=== PATIENT | male | born 1985 | race Hispanic/Latino ===

== ENCOUNTER 2018-11-19 06:15 | Observation (INO) | payer OTHER, SELFPAY ==
[2018-11-16 11:45] VITALS: BP 125/77
--- NOTE | 2018-11-16 11:46 | NUR ---
LABS LAB RESULTS FROM OFFICE BROUGHT BY PT, NO RESULTS FOR VITAMIN K WAS FOUND. CALLED DR. SALAZAR'S OFFICE FOR CLARIFICATION, SPOKE TO PETER, DR. SALAZAR'S NURSE. PER PETER, IF VIT K RESULTS NOT FOUND, DISREGARD VIT K ORDER, NO NEED TO DRAW PATIENT.
[~2018-11-19] VITALS: Ht 176.5 cm; Wt 142.5 kg
[2018-11-19] VITALS (29 sets, daily range): BP systolic 120–149; BP diastolic 62–93
[~2018-11-19 06:15] MED LIST: CHOL20004 PO; FLUT9.9S NS; HEPARIN SODIUM 5000UNIT/ML 1ML VIAL SQ SCH; LEVO5TAB13 PO; LOSA25TA41 PO; OMEP10CA41 PO; SERT50TA12 PO; TEST200V21 IM
[2018-11-19] MEDS ORDERED: LACTATED RINGERS 1000ML 1,000 ML IV ONE ×2 (06:34→23:19)
[2018-11-19] MEDS: CEFOXITIN SODIUM 2 GM VIAL IVP SCH ×2 (07:00→08:02)
[2018-11-19] MEDS: CYANOCOBALAMIN (VITAMIN B-12) 1000 MCG/ML 1ML VIAL IM SCH (07:12)
[2018-11-19] MEDS ORDERED: MEPERIDINE-PF 50 MG/ML SYG ONE (07:12)
[2018-11-19] MEDS ORDERED: LIDOCAINE PF 2% 5ML ABBOJECT ONE (07:15)
[2018-11-19] MEDS ORDERED: ROCURONIUM 10MG/1ML SYR 10 MG/ML ML ONE ×2 (07:15→08:47)
[2018-11-19] MEDS ORDERED: SUCCINYLCHOLINE 200MG/10ML SYR ONE (07:15)
[2018-11-19] MEDS ORDERED: PROPOFOL 10 MG/ML 20ML VIAL IV ONE (07:15)
[2018-11-19] MEDS ORDERED: FENTANYL CITRATE PF 50 MCG/1 ML 5ML AMP IV ONE (07:16)
[2018-11-19] MEDS ORDERED: LIDOCAINE HCL-MPF 0.5% 50ML VIAL IJ ONE (07:22)
[2018-11-19] MEDS ORDERED: GENTAMICIN SULFATE 80 MG/2 ML VIAL ONE (07:22)
[2018-11-19] MEDS ORDERED: CLINDAMYCIN PHOSPHATE 150 MG/ML 6ML VIAL ONE (07:23)
[2018-11-19] MEDS ORDERED: BUPIVACAINE/EPI/PF 0.5% 30ML VIAL IJ ONE ×2 (07:25→08:20)
[2018-11-19] MEDS ORDERED: METHYLENE BLUE 10 MG/ML AMP ONE (07:25)
[2018-11-19] MEDS ORDERED: GLYCOPYRROLATE 1 MG/5 ML SYRINGE ONE (09:17)
[2018-11-19] MEDS ORDERED: KETOROLAC TROMETHAMINE 30MG/ML ONE (09:17)
[2018-11-19] MEDS ORDERED: NEOSTIGMINE 5MG/5ML SYR IV ONE (09:17)
[2018-11-19] MEDS ORDERED: ONDANSETRON HCL 4 MG/2 ML VIAL ONE ×2 (09:20→10:10)
[2018-11-19] MEDS ORDERED: MEPERIDINE-PF 25 MG/ML SYG ONE ×2 (10:10→11:20)
[2018-11-19] MEDS ORDERED: METOCLOPRAMIDE 10 MG/2 ML VIAL ONE (10:17)
[2018-11-19] MEDS ORDERED: HYDROMORPHONE PCA 10 MG/50 ML 50 ML IV PRN (13:00)
[2018-11-19] MEDS ORDERED: ONDANSETRON HCL 4 MG/2 ML 8 MG in SODIUM CHLORIDE 0.9% 50 ML IVP PRN (13:00)
--- NOTE | 2018-11-19 17:00 | NUR ---
DR. MARTIN LUNA AWARE OF PT'S THOMAS BLOOD EMESIS, FRESH LOOKING BLOOD NO CLOTS NOTED PT'S VITAL SIGNS READ TO STATED TO CHECK h&H AT 1800 TODAY AND TOMORROW AM. CARAFATE SLURY 1 GRAM Q4 HRS AND ICE CHIPS PT DENIES SOB OR CHEST PAIN WILL CONTINUE TO MONITOR CHARGE NURSE SHARON MELGAR
[2018-11-19] MEDS: SUCRALFATE 1 GM/10 ML PO SCH ×3 (17:35→21:35)
[2018-11-19] MEDS ORDERED: ONDANSETRON HCL 4 MG/2 ML VIAL IVP PRN (18:00)
[2018-11-19 18:34] LABS: HEMATOCRIT 45.2 % (42-54)
[2018-11-19] MEDS: HEPARIN SODIUM 5000UNIT/ML 1ML VIAL SQ SCH (19:53)
[2018-11-20] MEDS: SUCRALFATE 1 GM/10 ML PO SCH ×6 (03:11→22:33)
[2018-11-20] MEDS: CYANOCOBALAMIN (VITAMIN B-12) 1000 MCG/ML 1ML VIAL IM SCH ×2 (03:12→20:53)
[2018-11-20 04:05] VITALS: BP 146/86
[2018-11-20 04:34] LABS: HEMATOCRIT 44.3 % (42-54)
[2018-11-20 08:20] VITALS: BP 128/81
[2018-11-20] MEDS: HEPARIN SODIUM 5000UNIT/ML 1ML VIAL SQ SCH ×2 (09:56→22:36)
[2018-11-20 11:49] VITALS: BP 123/71
--- NOTE | 2018-11-20 14:01 | NUR ---
DCP CM met with pt discussed dc plans. Pt is independent, lives at home with partner Ralf Hicks. Denies any equipments/services. Pt feels safe to go back home, still works and drives, partner able to assist with transportation and needs as necessary. DC plan to home once stable. CM to cont to follow up. Addendum: 11/20/18 at 1403 by WALI HOLDEN LVN CM Amended: Links added.
[2018-11-20 16:23] VITALS: BP 125/71
--- NOTE | 2018-11-20 20:10 | NUR ---
NOTE PATIENT REPORTS FEELING UNCOMFORTABLE. PAIN LEVEL 8-9. HAS CALF SKINNER AND USES IT NEEDED. HAS BEEN WALKING FREQUENTLY BUT NOT SUCCESSFUL IN BEING ABLE TO PASS GAS. STATES HE DOES NOT FEEL COMFORTABLE GOING HOME YET DUE TO THE ABOVE MENTIONED.
[2018-11-20 20:15] VITALS: BP 125/66
[2018-11-20 23:35] VITALS: BP 122/75
[2018-11-21] MEDS: SUCRALFATE 1 GM/10 ML PO SCH ×3 (02:36→10:20)
[2018-11-21 04:00] VITALS: BP 123/67
--- NOTE | 2018-11-21 06:40 | NUR ---
NOTE PATIENT REPORTS FEELING BETTER THIS MORNING. PAIN LEVEL 4-5. SAYS HE WAS FINALLY ABLE TO PASS GAS. ALSO STATES HE DOES FEEL COMFORTABLE GOING HOME TODAY.
[2018-11-21 08:04] VITALS: BP 121/67
[2018-11-21] MEDS: HEPARIN SODIUM 5000UNIT/ML 1ML VIAL SQ SCH (09:00)
--- NOTE | 2018-11-21 09:30 | NUR ---
DR. Zandra SALAZAR CALLED MD TO UPDATE ON PATIENT STATUS. PATIENT REPORTS ABDOMINAL PAIN 12/02 AND REPORTS PASSING GAS 2 TIMES THIS MORNING. NORMOACTIVE BOWEL SOUNDS IN ALL 4 QUADRANTS. PATIENT REPORTS FEELING BETTER TODAY. DR. Zandra SALAZAR ORDERED TO PROCEED WITH DISCHARGE TODAY. F/U APPT WITH DR. Zandra SALAZAR IN 2 WEEKS Addendum: 11/21/18 at 1210 by ANNALISA BARBOZA RN RN DR. Zandra SALAZAR ALSO TOLD ME IN THIS PHONECALL THAT HE THOUGHT PATIENT WAS DISCHARGED HOME YESTERDAY. 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
[2018-11-21 11:24] VITALS: BP 115/65
== END 2018-11-21 12:45 | disposition home or self-care (01) ==
LOC: DAH 06:15 → 4BH 06:16 → PREINTOOBSV 10:14 → EDSTATUS 10:30
PROVIDERS: ADMIT Surgery; ATTEND Surgery
DX: E66.01 Morbid (severe) obesity due to excess calories (principal); E78.5 Hyperlipidemia, unspecified; I10 Essential (primary) hypertension; Z87.891 Personal history of nicotine dependence; Z68.42 Body mass index [BMI] 45.0-49.9, adult
CPT/HCPCS: 36415 ×3; 43775; 85014 ×2; 85018 ×2; 86850 ×2; 86900 ×2; 86901 ×2; 86922; 88307; 96372 ×2; 96374; A4218; A4450; A4510; A4600; A4606; A4649 ×7; A4930; G0378 ×54; J0330; J0694; J1170; J1580; J1644 ×4; J1885; J2001; J2175 ×3; J2405 ×3; J2704; J2710; J2765; J3010; J3420 ×3; J3490 ×3; J7030; J7120 ×3; Q9968; 96375

== ENCOUNTER 2018-12-15 23:45 | Inpatient (IN) | payer OTHER ==
[~2018-12-15] VITALS: Ht 175.3 cm; Wt 124.7 kg
[~2018-12-15 23:45] MED LIST changes: +AMOX200S10 PO; -HEPARIN SODIUM 5000UNIT/ML 1ML VIAL SQ SCH
[2018-12-16 01:01] LABS: CARBON DIOXIDE 25 mmol/L (21-32); CHLORIDE 100 mmol/L (101-111); CREATININE 0.9 mg/dL (0.5-1.5); GLOMERULAR FILTR. RATE CALC 103 mL/min (>60); GLUCOSE,RANDOM 93 mg/dL (70-105); POTASSIUM 3.8 mmol/L (3.5-5.1); SODIUM SERUM 138 mmol/L (136-145); UREA NITROGEN, BLOOD 7 mg/dL (7-18)
[2018-12-16 01:14] LABS: ALANINE AMINOTRANSFERASE 32 U/L (12-78); ALBUMIN 3.5 g/dL (3.5-5.0); ASPARTATE AMINOTRANSFERASE 23 U/L (10-37); CREATINE KINASE, TOTAL 56 U/L (21-232); MYOGLOBIN 22 ng/mL (10-92); TOTAL PROTEIN, SERUM 7.1 g/dL (6.0-8.3); TROPONIN I < 0.04 ng/mL (0.00-0.06)
[2018-12-16] MEDS ORDERED: IOHEXOL-350 75 ML VIAL IV ONE ×2 (01:31→04:45)
[2018-12-16 02:06] LABS: BASOPHILS % (AUTO) 0.8 % (0.0-5.0); EOSINOPHILS % (AUTO) 0.7 % (0.0-8.0); LYMPHOCYTES % (AUTO) 19.5 % (21.0-51.0); MEAN CORPUSCULAR HEMOGLOBIN 28.2 pg (27.0-33.0); MEAN CORPUSCULAR HGB CONC 32.6 g/dL (32.0-36.0); MEAN CORPUSCULAR VOLUME 86.4 fL (79-99); MONOCYTES % (AUTO) 7.5 % (3.0-13.0); NEUTROPHILS % (AUTO) 71.5 % (40.0-77.0); NUCLEATED RED BLOOD CELLS 0.1 % (0.0-0.19); PLATELET COUNT (AUTO) 364 K/uL (130-400); RED BLOOD CELL COUNT(AUTO) 4.51 MIL/uL (4.50-6.20); RED CELL DISTRIBUTION WIDTH 15.9 % (11.0-15.5); WHITE BLOOD COUNT (AUTO) 15.2 K/uL (4.8-10.8)
[2018-12-16 02:17] LABS: INR 1.21 (0.85-1.15); PARTIAL THROMBOPLASTIN TIME 34.3 SEC (26.3-35.5); PROTHROMBIN TIME 12.7 SEC (9.6-11.6)
[2018-12-16 02:30] LABS: APPEARANCE,URINE Clear (CLEAR); BILIRUBIN,URINE Negative (NEGATIVE); COLOR,URINE Yellow (YELLOW); GLUCOSE, URINE (UA) Negative (NEGATIVE); KETONES,URINE >=160 mg/dL (NEGATIVE); LEUKOCYTE ESTERASE ,URINE Negative (NEGATIVE); NITRATE,URINE Negative (NEGATIVE); OCCULT BLOOD,URINE Negative (NEGATIVE); PROTEIN,URINE Negative (NEGATIVE)
[2018-12-16 02:42] LABS: RBC,URINE None Seen /HPF (0-1); WBC,URINE 0-1 /HPF (0-1)
[2018-12-16 02:43] LABS: BACTERIA,URINE Rare /HPF (None Seen); SQUAMOUS EPITHELIAL CELL,UR 0-2 /HPF (0-2)
[2018-12-16] MEDS ORDERED: DIATR MEGLU/DIATRIZOATE SODIUM 30 ML BOTTLE ONE (02:48)
[2018-12-16] MEDS: SODIUM CHLORIDE 0.9% 1000ML 1,000 ML IV SCH ×2 (06:09→16:09)
[2018-12-16] MEDS ORDERED: ACETAMINOPHEN 325 MG TAB PO PRN (06:15)
[2018-12-16] MEDS ORDERED: ZOSYN 3.375GM+NS 50ML 50 ML IV ONE ×2 (07:02→17:07)
[2018-12-16] MEDS: PANTOPRAZOLE SODIUM 40 MG TABLET.DR PO SCH (09:00)
[2018-12-16] MEDS: ENOXAPARIN SODIUM 40 MG/0.4 ML SYRINGE SQ SCH (09:00)
[2018-12-16] MEDS ORDERED: SODIUM CHLORIDE 0.9% 1000ML 1,000 ML IV ONE (10:58)
[2018-12-16] MEDS ORDERED: ENOXAPARIN SODIUM 40 MG/0.4 ML SYRINGE SQ ONE (10:58)
[2018-12-16] MEDS: ZOSYN 3.375GM+NS 50ML 50 ML IV SCH ×2 (13:00→21:00)
[2018-12-17] MEDS ORDERED: ZOSYN 3.375GM+NS 50ML 50 ML IV ONE (01:31)
[2018-12-17] MEDS ORDERED: MORPHINE SULFATE 2 MG/ML 1ML SYG ONE ×2 (01:32→06:28)
[2018-12-17] MEDS: SODIUM CHLORIDE 0.9% 1000ML 1,000 ML IV SCH ×3 (02:09→20:35)
[2018-12-17] MEDS: ZOSYN 3.375GM+NS 50ML 50 ML IV SCH ×3 (05:00→20:34)
[2018-12-17 07:25] VITALS: BP 146/72
[2018-12-17] MEDS: PANTOPRAZOLE SODIUM 40 MG TABLET.DR PO SCH (09:00)
[2018-12-17] MEDS: ENOXAPARIN SODIUM 40 MG/0.4 ML SYRINGE SQ SCH (09:00)
[2018-12-17 11:00] VITALS: BP 136/88
--- NOTE | 2018-12-17 13:53 | NUR ---
PROCEDURE PATIENT SCHEDULED FOR DRAINAGE CATHETER PLACEMENT OF ABDOMINAL ABSCESS FOR TODAY. DR Kip NEVILLE MADE AWARE AND REVIEWED IMAGES. UNABLE TO PERFORM PROCEDURE TODAY AND AND RESCHEDULED PROCEDURE FOR TOMORROW AT 0930. JOVANA GREEN INFORMED OR PROCEDURE OUTCOME.
[2018-12-17] MEDS: ONDANSETRON HCL 4 MG/2 ML VIAL IV PRN ×2 (14:48→23:34)
[2018-12-17] MEDS: MORPHINE SULFATE 2 MG/ML 1ML SYG IV PRN ×2 (14:48→23:35)
[2018-12-17 16:00] VITALS: BP 118/64
[2018-12-17] MEDS ORDERED: DIATR MEGLU/DIATRIZOATE SODIUM 30 ML BOTTLE ONE (16:20)
[2018-12-17] MEDS: FLUCONAZOLE 200 MG/NS 100 ML 100 ML IV SCH (17:20)
--- NOTE | 2018-12-17 17:34 | NUR ---
PT UPDATE ID consulted to see pt, order for upper GI series to rule out leakage, workup positive for leakage, pt placed NPO right now, Dr. Flores the surgeon made aware, order to consult GI international editorial producer for gastric stent placement, Dr. Spaulding consulted, pending to see pt. Nursing will continue to follow up.
[2018-12-17 20:00] VITALS: BP 125/76
--- NOTE | 2018-12-17 20:19 | NUR ---
cm note met with patient pt lives with partner, independent with ambulation and adls, no dme. works full time babysitter drives. . dc plan is back to home. states no dc needs. Addendum: 12/17/18 at 2020 by ASA ZAMBRANO CM Amended: Links added.
[2018-12-17 23:00] VITALS: BP 121/76
[2018-12-18] VITALS (10 sets, daily range): BP systolic 121–155; BP diastolic 74–89
[2018-12-18] MEDS: ZOSYN 3.375GM+NS 50ML 50 ML IV SCH ×3 (05:08→20:14)
[2018-12-18 05:58] LABS: BASOPHILS % (AUTO) 0.5 % (0.0-5.0); EOSINOPHILS % (AUTO) 2.1 % (0.0-8.0); HEMATOCRIT 38.3 % (42-54); LYMPHOCYTES % (AUTO) 10.2 % (21.0-51.0); MEAN CORPUSCULAR HEMOGLOBIN 28.3 pg (27.0-33.0); MEAN CORPUSCULAR HGB CONC 32.5 g/dL (32.0-36.0); MEAN CORPUSCULAR VOLUME 86.9 fL (79-99); MONOCYTES % (AUTO) 9.9 % (3.0-13.0); NEUTROPHILS % (AUTO) 77.3 % (40.0-77.0); PLATELET COUNT (AUTO) 307 K/uL (130-400); RED BLOOD CELL COUNT(AUTO) 4.41 MIL/uL (4.50-6.20); RED CELL DISTRIBUTION WIDTH 16.7 % (11.0-15.5); WHITE BLOOD COUNT (AUTO) 11.6 K/uL (4.8-10.8)
[2018-12-18 06:26] LABS: CREATININE 0.8 mg/dL (0.5-1.5); POTASSIUM 3.6 mmol/L (3.5-5.1)
[2018-12-18] MEDS: PANTOPRAZOLE SODIUM 40 MG TABLET.DR PO SCH (09:00)
[2018-12-18] MEDS: MORPHINE SULFATE 2 MG/ML 1ML SYG IV PRN ×2 (09:22→17:51)
[2018-12-18] MEDS: ONDANSETRON HCL 4 MG/2 ML VIAL IV PRN ×2 (09:22→17:51)
[2018-12-18] MEDS: SODIUM CHLORIDE 0.9% 1000ML 1,000 ML IV SCH ×2 (09:22→16:36)
[2018-12-18] MEDS ORDERED: MIDAZOLAM HCL 1 MG/ML 2ML VIAL ONE (10:15)
[2018-12-18] MEDS ORDERED: LIDOCAINE HCL 1% 20 ML VIAL ONE (10:15)
[2018-12-18] MEDS ORDERED: FENTANYL CITRATE PF 50 MCG/1 ML 2ML VIAL ONE (10:15)
--- NOTE | 2018-12-18 11:30 | NUR ---
CT GD DRAINAGE CATHETER PLACEMENT PROCEDURE PERFORMED BY DR Kip NEVILLE. PUNCTURE SITE LT LOWER BACK. PATIENT TOLERATED PROCEDURE WELL. 12 FR PIGTAIL CATHETER PLACED TO ABDOMINAL ABSCESS AND CONNECTED TO DRAIN BAG. CATHETER SUTURED IN PLACE AND SECURED WITH DRESSING. SPECIMEN COLLECTED AND SENT TO LAB. END OF PROCEDURE AT 1115. REPORT GIVEN TO Aubrey ANNA RN AND PATIENT TRANSPORTED TO [facility] VIA BED AT 1130 AAO X3 WITH NO C/O PAIN.
--- NOTE | 2018-12-18 12:00 | NUR ---
PER DR. KATZ, DISPOSITION IS UNDETERMINED WILL WAIT TO SEE CULTURE RESULTS, ETC BEFORE DETERMINING AFTER CARE NEED. MAY NEED SNF, AIU, OR OTHER. Addendum: 12/18/18 at 1719 by TIO DAWSON RN CM Amended: Links added.
[2018-12-18] MEDS: ENOXAPARIN SODIUM 40 MG/0.4 ML SYRINGE SQ SCH (14:00)
[2018-12-18] MEDS: FLUCONAZOLE 200 MG/NS 100 ML 100 ML IV SCH (16:36)
--- NOTE | 2018-12-18 19:23 | NUR ---
SPOKE WITH DR. DEVORAH FAIRCHILD REPORT HE ALREADY SPOKE WITH DR. MCCLELLAN REGARDING PATIENT. PT WILL STAY NPO DUE TO LEAK. DR. MCCLELLAN TO SEE PATIENT REGARDING LEAK.
[2018-12-18] MEDS ORDERED: ACETAMINOPHEN 650 MG SUPPOSITORY RC PRN (20:45)
--- NOTE | 2018-12-18 21:05 | NUR ---
SURGEON DR. FAIRCHILD IN TO SEE PATIENT. NO NEW ORDERS RECEIVED AT THIS TIME.
[2018-12-19] VITALS: BP 112/64
[2018-12-19 04:00] VITALS: BP 132/78
[2018-12-19] MEDS: SODIUM CHLORIDE 0.9% 1000ML 1,000 ML IV SCH (04:18)
[2018-12-19] MEDS: ZOSYN 3.375GM+NS 50ML 50 ML IV SCH ×3 (04:18→22:44)
[2018-12-19] MEDS: ONDANSETRON HCL 4 MG/2 ML VIAL IV PRN ×3 (04:18→18:24)
[2018-12-19] MEDS: MORPHINE SULFATE 2 MG/ML 1ML SYG IV PRN ×3 (04:19→18:23)
[2018-12-19 05:34] LABS: BASOPHILS % (AUTO) 0.5 % (0.0-5.0); EOSINOPHILS % (AUTO) 1.4 % (0.0-8.0); HEMATOCRIT 37.3 % (42-54); LYMPHOCYTES % (AUTO) 9.4 % (21.0-51.0); MEAN CORPUSCULAR HEMOGLOBIN 28.3 pg (27.0-33.0); MEAN CORPUSCULAR HGB CONC 32.8 g/dL (32.0-36.0); MEAN CORPUSCULAR VOLUME 86.2 fL (79-99); MONOCYTES % (AUTO) 10.2 % (3.0-13.0); NEUTROPHILS % (AUTO) 78.5 % (40.0-77.0); PLATELET COUNT (AUTO) 301 K/uL (130-400); RED BLOOD CELL COUNT(AUTO) 4.33 MIL/uL (4.50-6.20); RED CELL DISTRIBUTION WIDTH 16.3 % (11.0-15.5); WHITE BLOOD COUNT (AUTO) 11.2 K/uL (4.8-10.8)
[2018-12-19 05:41] LABS: CREATININE 0.8 mg/dL (0.5-1.5); POTASSIUM 3.6 mmol/L (3.5-5.1)
[2018-12-19] MEDS ORDERED: PHARMACY COMMUNICATION MISC SCH (07:45)
[2018-12-19 08:00] VITALS: BP 122/76
[2018-12-19] MEDS: PANTOPRAZOLE SODIUM 40 MG TABLET.DR PO SCH (09:00)
[2018-12-19] MEDS: ENOXAPARIN SODIUM 40 MG/0.4 ML SYRINGE SQ SCH (09:46)
[2018-12-19 12:00] VITALS: BP 122/76
--- NOTE | 2018-12-19 12:15 | NUR ---
CM PRELIIM CULTURES BACK. CASE DISCUSSED W TASNEEM, WILL START PORICESS FOR [facility]
[2018-12-19] MEDS: FLUCONAZOLE 200 MG/NS 100 ML 100 ML IV SCH (12:29)
[2018-12-19] MEDS: CLINIMIX E 4.25%-5% SOLUTION 2,000 ML IV SCH (12:30)
[2018-12-19 16:00] VITALS: BP 112/74
[2018-12-19 19:15] VITALS: BP 138/82
[2018-12-20 00:04] VITALS: BP 123/76
[2018-12-20 04:02] VITALS: BP 116/80
[2018-12-20 05:40] LABS: BASOPHILS % (AUTO) 0.7 % (0.0-5.0); EOSINOPHILS % (AUTO) 3.1 % (0.0-8.0); HEMATOCRIT 35.9 % (42-54); LYMPHOCYTES % (AUTO) 14.9 % (21.0-51.0); MEAN CORPUSCULAR HEMOGLOBIN 28.6 pg (27.0-33.0); MEAN CORPUSCULAR HGB CONC 33.3 g/dL (32.0-36.0); MEAN CORPUSCULAR VOLUME 85.9 fL (79-99); MONOCYTES % (AUTO) 10.1 % (3.0-13.0); NEUTROPHILS % (AUTO) 71.2 % (40.0-77.0); PLATELET COUNT (AUTO) 321 K/uL (130-400); RED BLOOD CELL COUNT(AUTO) 4.19 MIL/uL (4.50-6.20); RED CELL DISTRIBUTION WIDTH 16.7 % (11.0-15.5); WHITE BLOOD COUNT (AUTO) 11.9 K/uL (4.8-10.8)
[2018-12-20 05:54] LABS: CREATININE 0.7 mg/dL (0.5-1.5); POTASSIUM 3.4 mmol/L (3.5-5.1)
[2018-12-20] MEDS: ZOSYN 3.375GM+NS 50ML 50 ML IV SCH ×3 (05:59→21:00)
[2018-12-20] MEDS: PANTOPRAZOLE SODIUM 40 MG TABLET.DR PO SCH (07:57)
[2018-12-20 08:00] VITALS: BP 143/82
[2018-12-20] MEDS: ENOXAPARIN SODIUM 40 MG/0.4 ML SYRINGE SQ SCH (10:12)
[2018-12-20] MEDS: CLINIMIX E 4.25%-5% SOLUTION 2,000 ML IV SCH (10:47)
[2018-12-20 12:00] VITALS: BP 132/82
[2018-12-20] MEDS ORDERED: VANCOMYCIN PROTOCOL PER PHARMACY IV SCH (13:00)
[2018-12-20] MEDS: FLUCONAZOLE 200 MG/NS 100 ML 100 ML IV SCH (13:08)
[2018-12-20] MEDS ORDERED: VANCOMYCIN 2.5 GM in SODIUM CHLORIDE 0.9% 500ML 500 ML IV ONE (13:30)
[2018-12-20] MEDS ORDERED: COMPOUND IV REFRIGERATED 1 EACH IVSOLN MISC PRN (13:45)
[2018-12-20] MEDS: MORPHINE SULFATE 2 MG/ML 1ML SYG IV PRN ×2 (14:21→23:48)
[2018-12-20] MEDS ORDERED: LIDOCAINE HCL-MPF 1% 2ML VIAL IVP PRN ×2 (18:30)
[2018-12-20] MEDS ORDERED: POTASSIUM CHLORIDE 20MEQ/100ML 100 ML IV PRN (18:30)
[2018-12-20] MEDS ORDERED: POTASSIUM CHLORIDE 10% ELIXIR 20 MEQ/15 ML UDCUP PO PRN (18:30)
[2018-12-20 19:19] VITALS: BP 126/75
[2018-12-20] MEDS: VANCOMYCIN 1.25 GM in SODIUM CHLORIDE 0.9% 250 ML IV SCH (23:26)
[2018-12-20 23:30] VITALS: BP 118/81
[2018-12-21] VITALS (17 sets, daily range): BP systolic 108–138; BP diastolic 69–85
[2018-12-21] MEDS: POTASSIUM CHLORIDE 20MEQ/100ML 100 ML IV PRN (01:33)
[2018-12-21] MEDS: ZOSYN 3.375GM+NS 50ML 50 ML IV SCH ×3 (05:00→22:18)
[2018-12-21] MEDS: VANCOMYCIN 1.25 GM in SODIUM CHLORIDE 0.9% 250 ML IV SCH ×2 (05:00→19:13)
[2018-12-21 06:06] LABS: BASOPHILS % (AUTO) 0.8 % (0.0-5.0); EOSINOPHILS % (AUTO) 2.9 % (0.0-8.0); HEMATOCRIT 35.8 % (42-54); LYMPHOCYTES % (AUTO) 9.7 % (21.0-51.0); MEAN CORPUSCULAR HEMOGLOBIN 28.2 pg (27.0-33.0); MEAN CORPUSCULAR HGB CONC 33.1 g/dL (32.0-36.0); MEAN CORPUSCULAR VOLUME 85.1 fL (79-99); MONOCYTES % (AUTO) 9.8 % (3.0-13.0); NEUTROPHILS % (AUTO) 76.8 % (40.0-77.0); PLATELET COUNT (AUTO) 301 K/uL (130-400); RED CELL DISTRIBUTION WIDTH 16.9 % (11.0-15.5); WHITE BLOOD COUNT (AUTO) 10.2 K/uL (4.8-10.8)
[2018-12-21 06:31] LABS: CREATININE 1.1 mg/dL (0.5-1.5); POTASSIUM 3.4 mmol/L (3.5-5.1)
[2018-12-21] MEDS ORDERED: PROPOFOL 10 MG/ML 20ML VIAL IV ONE (07:03)
[2018-12-21] MEDS ORDERED: DIATR MEGLU/DIATRIZOATE SODIUM 30 ML BOTTLE ONE ×2 (07:16)
[2018-12-21] MEDS ORDERED: LIDOCAINE HCL-MPF 2% 5ML VIAL ONE (07:20)
[2018-12-21] MEDS: PANTOPRAZOLE SODIUM 40 MG TABLET.DR PO SCH (07:30)
[2018-12-21] MEDS: ENOXAPARIN SODIUM 40 MG/0.4 ML SYRINGE SQ SCH (09:15)
[2018-12-21] MEDS: FLUCONAZOLE 200 MG/NS 100 ML 100 ML IV SCH (12:27)
[2018-12-21] MEDS: ONDANSETRON HCL 4 MG/2 ML VIAL IV PRN (13:26)
[2018-12-21] MEDS: MORPHINE SULFATE 2 MG/ML 1ML SYG IV PRN (13:26)
[2018-12-21] MEDS: CLINIMIX E 4.25%-5% SOLUTION 2,000 ML IV SCH (14:53)
[2018-12-22] VITALS: BP 135/85
[2018-12-22 02:38] LABS: BASOPHILS % (AUTO) 0.8 % (0.0-5.0); EOSINOPHILS % (AUTO) 1.8 % (0.0-8.0); HEMATOCRIT 35.8 % (42-54); LYMPHOCYTES % (AUTO) 12.9 % (21.0-51.0); MEAN CORPUSCULAR HEMOGLOBIN 27.7 pg (27.0-33.0); MEAN CORPUSCULAR HGB CONC 32.5 g/dL (32.0-36.0); MEAN CORPUSCULAR VOLUME 85.1 fL (79-99); MONOCYTES % (AUTO) 11.4 % (3.0-13.0); NEUTROPHILS % (AUTO) 73.1 % (40.0-77.0); PLATELET COUNT (AUTO) 313 K/uL (130-400); RED BLOOD CELL COUNT(AUTO) 4.21 MIL/uL (4.50-6.20); RED CELL DISTRIBUTION WIDTH 16.9 % (11.0-15.5)
[2018-12-22 02:43] LABS: CREATININE 1.2 mg/dL (0.5-1.5); POTASSIUM 3.4 mmol/L (3.5-5.1)
[2018-12-22 02:45] LABS: INR 1.55 (0.85-1.15); PROTHROMBIN TIME 16.1 SEC (9.6-11.6)
[2018-12-22] MEDS ORDERED: VANCOMYCIN 1.25 GM in SODIUM CHLORIDE 0.9% 250 ML IV SCH (03:00)
[2018-12-22] MEDS: ONDANSETRON HCL 4 MG/2 ML VIAL IV PRN (03:16)
[2018-12-22 04:00] VITALS: BP 132/83
[2018-12-22] MEDS: ZOSYN 3.375GM+NS 50ML 50 ML IV SCH ×2 (05:19→21:51)
[2018-12-22] MEDS: VANCOMYCIN 1.25 GM in SODIUM CHLORIDE 0.9% 250 ML IV SCH ×3 (05:20→20:00)
[2018-12-22 07:00] VITALS: BP 126/76
[2018-12-22] MEDS: PANTOPRAZOLE SODIUM 40 MG TABLET.DR PO SCH (07:30)
[2018-12-22] MEDS: ENOXAPARIN SODIUM 40 MG/0.4 ML SYRINGE SQ SCH ×2 (09:00→11:36)
[2018-12-22 11:00] VITALS: BP 132/88
[2018-12-22] MEDS: FLUCONAZOLE 200 MG/NS 100 ML 100 ML IV SCH (11:35)
[2018-12-22 16:00] VITALS: BP 117/72
--- NOTE | 2018-12-22 17:57 | NUR ---
LOV[facility] NOT GIVEN DUE FOR PICC LINE PLACEMENT
[2018-12-22 20:00] VITALS: BP 131/79
[2018-12-22] MEDS ORDERED: BACITRACIN 1 EACH PACKET TP ONE (22:00)
[2018-12-22] MEDS: CLINIMIX E 4.25%-5% SOLUTION 2,000 ML IV SCH (23:33)
[2018-12-23] VITALS: BP 128/80
[2018-12-23] MEDS: POTASSIUM CHLORIDE 20MEQ/100ML 100 ML IV PRN (01:53)
[2018-12-23] MEDS: VANCOMYCIN 1.25 GM in SODIUM CHLORIDE 0.9% 250 ML IV SCH ×3 (03:05→20:41)
[2018-12-23 04:00] VITALS: BP 121/74
[2018-12-23] MEDS: ZOSYN 3.375GM+NS 50ML 50 ML IV SCH ×3 (05:09→20:41)
[2018-12-23] MEDS: ONDANSETRON HCL 4 MG/2 ML VIAL IV PRN ×2 (05:24→20:47)
[2018-12-23 07:30] VITALS: BP 127/85
[2018-12-23] MEDS: PANTOPRAZOLE SODIUM 40 MG TABLET.DR PO SCH (07:30)
[2018-12-23 11:00] VITALS: BP 136/86
[2018-12-23] MEDS: ENOXAPARIN SODIUM 40 MG/0.4 ML SYRINGE SQ SCH (11:40)
[2018-12-23] MEDS: FLUCONAZOLE 200 MG/NS 100 ML 100 ML IV SCH (11:41)
[2018-12-23 16:00] VITALS: BP 124/83
[2018-12-23 19:00] VITALS: BP 128/88
[2018-12-24] VITALS (7 sets, daily range): BP systolic 118–137; BP diastolic 77–92
[2018-12-24] MEDS: CLINIMIX E 4.25%-5% SOLUTION 2,000 ML IV SCH
--- NOTE | 2018-12-24 | NUR ---
PT IN BED, ABLE TO GET OUT OF BED WITH MINIMAL ASSISTANCE. RUNNING TPN CONTINUOUS AT 80ML/HR. VANCO AND ZOSYN BEING GIVEN. LAST BM 12/23. STATES VOIDS WELL. PT IS VERY STABLE. DRAINAGE BEING MONITORED FROM PERCUTANEOUS ACCORDION BAG. LESS THAN 10ML/NOTED. PT STATES NO PAIN. ONLY DRY MOUTH STATED PER PT. REQUIRES SUCTION.
[2018-12-24] MEDS: VANCOMYCIN 1.25 GM in SODIUM CHLORIDE 0.9% 250 ML IV SCH ×3 (05:09→21:35)
[2018-12-24] MEDS: ZOSYN 3.375GM+NS 50ML 50 ML IV SCH ×3 (05:09→21:35)
[2018-12-24 05:45] LABS: BASOPHILS % (AUTO) 0.7 % (0.0-5.0); EOSINOPHILS % (AUTO) 2.5 % (0.0-8.0); HEMATOCRIT 30.2 % (42-54); LYMPHOCYTES % (AUTO) 11.6 % (21.0-51.0); MEAN CORPUSCULAR HEMOGLOBIN 27.8 pg (27.0-33.0); MEAN CORPUSCULAR HGB CONC 31.1 g/dL (32.0-36.0); MEAN CORPUSCULAR VOLUME 89.5 fL (79-99); MONOCYTES % (AUTO) 9.7 % (3.0-13.0); NEUTROPHILS % (AUTO) 75.5 % (40.0-77.0); PLATELET COUNT (AUTO) 294 K/uL (130-400); RED BLOOD CELL COUNT(AUTO) 3.37 MIL/uL (4.50-6.20); RED CELL DISTRIBUTION WIDTH 17.4 % (11.0-15.5); WHITE BLOOD COUNT (AUTO) 11.2 K/uL (4.8-10.8)
[2018-12-24] MEDS: PANTOPRAZOLE SODIUM 40 MG TABLET.DR PO SCH (06:35)
[2018-12-24 06:55] LABS: CREATININE 1.3 mg/dL (0.5-1.5); POTASSIUM 3.6 mmol/L (3.5-5.1)
[2018-12-24] MEDS ORDERED: DIATR MEGLU/DIATRIZOATE SODIUM 30 ML BOTTLE ONE (08:40)
[2018-12-24] MEDS: FLUCONAZOLE 200 MG/NS 100 ML 100 ML IV SCH (10:35)
[2018-12-24] MEDS: ENOXAPARIN SODIUM 40 MG/0.4 ML SYRINGE SQ SCH (10:36)
[2018-12-24] MEDS: DEXTROSE 5%-WATER 1,000 ML IV SCH ×2 (15:09→23:44)
[2018-12-24] MEDS: POTASSIUM CHLORIDE 20 MEQ ERTAB PO PRN ×2 (21:36→23:33)
[2018-12-24] MEDS: ONDANSETRON HCL 4 MG/2 ML VIAL IV PRN (21:59)
[2018-12-25 03:00] VITALS: BP 135/88
[2018-12-25 05:12] LABS: BASOPHILS % (AUTO) 0.4 % (0.0-5.0); EOSINOPHILS % (AUTO) 2.6 % (0.0-8.0); HEMATOCRIT 32.8 % (42-54); LYMPHOCYTES % (AUTO) 14.6 % (21.0-51.0); MEAN CORPUSCULAR HEMOGLOBIN 27.5 pg (27.0-33.0); MEAN CORPUSCULAR HGB CONC 32.7 g/dL (32.0-36.0); MEAN CORPUSCULAR VOLUME 84.3 fL (79-99); MONOCYTES % (AUTO) 9.2 % (3.0-13.0); NEUTROPHILS % (AUTO) 73.2 % (40.0-77.0); NUCLEATED RED BLOOD CELLS 0.1 % (0.0-0.19); PLATELET COUNT (AUTO) 269 K/uL (130-400); RED BLOOD CELL COUNT(AUTO) 3.89 MIL/uL (4.50-6.20); RED CELL DISTRIBUTION WIDTH 17.1 % (11.0-15.5); WHITE BLOOD COUNT (AUTO) 11.9 K/uL (4.8-10.8)
[2018-12-25 05:21] LABS: CREATININE 1.3 mg/dL (0.5-1.5); POTASSIUM 3.5 mmol/L (3.5-5.1)
[2018-12-25] MEDS: ZOSYN 3.375GM+NS 50ML 50 ML IV SCH ×3 (06:44→22:00)
[2018-12-25] MEDS: PANTOPRAZOLE SODIUM 40 MG TABLET.DR PO SCH (06:44)
[2018-12-25 08:00] VITALS: BP 137/90
--- NOTE | 2018-12-25 10:16 | NUR ---
Pt. Update. Pt off the floor at the is time for an abscessogram with Pick And Shovel Man.
[2018-12-25] MEDS ORDERED: IODIXANOL 320 MG/ML 100 ML VIAL ONE (10:28)
[2018-12-25] MEDS ORDERED: LIDOCAINE HCL 1% MDV 50ML VIAL ONE (10:28)
[2018-12-25 11:00] VITALS: BP 132/84
[2018-12-25] MEDS: FLUCONAZOLE 200 MG/NS 100 ML 100 ML IV SCH (11:21)
[2018-12-25] MEDS: ENOXAPARIN SODIUM 40 MG/0.4 ML SYRINGE SQ SCH (11:23)
[2018-12-25] MEDS: DEXTROSE 5%-WATER 1,000 ML IV SCH (12:58)
[2018-12-25 16:00] VITALS: BP 127/83
--- NOTE | 2018-12-25 16:44 | NUR ---
Nutrition intervention: Nutrition notification as per pt's request, recent lep. sleeve gastrectomy. Pt admitted for SOB, currently with diet advance to full liquid diet. Pt did not like clear liquids. RD will monitor pt's nutritional tolerance very closely and continue with nutrition intervention as needed. Recommendations: When medically feasible, advance diet therapy to CCD 75GM diet, finely chopped textures, thin liquids. Diet recommendations appropriate for pt's diet phase. Pt with multiple questions and concerns on bariatric nutrition guidelines, all questions answered by RIKKI. Addendum: 12/25/18 at [address] RD Amended: Links added.
[2018-12-25] MEDS ORDERED: VANCOMYCIN 1.5 GM in SODIUM CHLORIDE 0.9% 250 ML IV ONE (18:30)
[2018-12-25 19:00] VITALS: BP 145/89
--- NOTE | 2018-12-25 20:01 | NUR ---
Pt Update. Pt AOX3 with stable VS, upper GI series negative for leakage, abscessogram negative for any pocket of fluid collection, tolerating full liquid diet well, fieldwork coordinator consult made per pt request, Sandra signed off from Sx standpoint, Advance to soft finely chopped diet by Dr. Lockett if tolerating, pt to be d/alejandra on this same diet, ID to determine length of abx tx after discharged, primary nurse updated, care endorsed.
[2018-12-25] MEDS: ONDANSETRON HCL 4 MG/2 ML VIAL IV PRN (22:00)
[2018-12-25 23:05] VITALS: BP 138/86
[2018-12-26] MEDS ORDERED: VANCOMYCIN 1.25 GM in SODIUM CHLORIDE 0.9% 250 ML IV SCH (02:00)
[2018-12-26] MEDS: VANCOMYCIN 0.75 GM in SODIUM CHLORIDE 0.9% 250 ML IV SCH ×3 (02:13→17:55)
[2018-12-26] MEDS: DEXTROSE 5%-WATER 1,000 ML IV SCH (02:13)
[2018-12-26 03:05] VITALS: BP 117/87
[2018-12-26] MEDS: ZOSYN 3.375GM+NS 50ML 50 ML IV SCH ×3 (06:11→20:41)
[2018-12-26] MEDS: PANTOPRAZOLE SODIUM 40 MG TABLET.DR PO SCH (06:11)
[2018-12-26 08:00] VITALS: BP 128/79
[2018-12-26] MEDS: ENOXAPARIN SODIUM 40 MG/0.4 ML SYRINGE SQ SCH (10:01)
[2018-12-26] MEDS: POTASSIUM CHLORIDE 20MEQ/100ML 100 ML IV PRN (10:01)
[2018-12-26] MEDS: FLUCONAZOLE 200 MG/NS 100 ML 100 ML IV SCH (11:49)
[2018-12-26 12:00] VITALS: BP 131/88
--- NOTE | 2018-12-26 13:05 | NUR ---
CM Note: [facility] pending ins auth and acceptance CM met with pt discussed MD recs for [facility], pt agreeable, DONNIE signed for [facility]. Faxed order and clinicals. Spoke to Renate collins/[facility], will come eval pt. Pt pending ins auth and acceptance. MOT semi-filled, pending to be completed, flagged in chart. EMS filled out, pending to be faxed, primary nurse pending to call [facility] once pt ready to dc. Primary nurse aware. CM to cont to follow up.
[2018-12-26 16:00] VITALS: BP 145/88
[2018-12-26 20:00] VITALS: BP 134/94
[2018-12-27] VITALS: BP 146/86
[2018-12-27 02:44] LABS: BASOPHILS % (AUTO) 0.6 % (0.0-5.0); EOSINOPHILS % (AUTO) 2.6 % (0.0-8.0); HEMATOCRIT 34.1 % (42-54); LYMPHOCYTES % (AUTO) 13.4 % (21.0-51.0); MEAN CORPUSCULAR HEMOGLOBIN 27.5 pg (27.0-33.0); MEAN CORPUSCULAR HGB CONC 32.9 g/dL (32.0-36.0); MEAN CORPUSCULAR VOLUME 83.6 fL (79-99); MONOCYTES % (AUTO) 9.2 % (3.0-13.0); NEUTROPHILS % (AUTO) 74.2 % (40.0-77.0); PLATELET COUNT (AUTO) 326 K/uL (130-400); RED BLOOD CELL COUNT(AUTO) 4.08 MIL/uL (4.50-6.20); WHITE BLOOD COUNT (AUTO) 13.4 K/uL (4.8-10.8)
[2018-12-27 02:59] LABS: CREATININE 1.4 mg/dL (0.5-1.5); POTASSIUM 3.2 mmol/L (3.5-5.1)
[2018-12-27] MEDS: VANCOMYCIN 0.75 GM in SODIUM CHLORIDE 0.9% 250 ML IV SCH ×3 (03:15→18:17)
[2018-12-27 04:22] VITALS: BP 128/83
[2018-12-27] MEDS: ZOSYN 3.375GM+NS 50ML 50 ML IV SCH ×2 (06:47→15:54)
[2018-12-27] MEDS: PANTOPRAZOLE SODIUM 40 MG TABLET.DR PO SCH (06:47)
[2018-12-27] MEDS: POTASSIUM CHLORIDE 20 MEQ ERTAB PO PRN ×3 (06:52→18:17)
[2018-12-27 08:00] VITALS: BP 148/79
[2018-12-27] MEDS: ENOXAPARIN SODIUM 40 MG/0.4 ML SYRINGE SQ SCH (09:24)
[2018-12-27 12:00] VITALS: BP 139/85
[2018-12-27] MEDS: FLUCONAZOLE 200 MG/NS 100 ML 100 ML IV SCH (12:01)
--- NOTE | 2018-12-27 14:48 | NUR ---
CM Note: [facility] acceptance, pending single case agreement approval Spoke to Renate Champagne, pt has acceptance, pending single case agreement to get approved. MOT filled out, flagged in chart. EMS arranged and faxed for today in case pt has approval. Primary nurse aware. CM to cont to follow up.
[2018-12-27 16:00] VITALS: BP 130/83
--- NOTE | 2018-12-27 17:20 | NUR ---
CM Note: [facility] ins auth and acceptance Spoke to Renate Champagne, pt has ins auth and acceptance, MOT filled out pending house super to sign, EMS arranged and faxed today, pending primary nurse to call [facility] once pt ready to dc. Primary nurse aware. CM to cont to follow up.
--- NOTE | 2018-12-27 19:23 | NUR ---
REPORT G[facility] TO MAKENNA [facility]
[2018-12-27 20:00] VITALS: BP 136/83
--- NOTE | 2018-12-27 20:00 | NUR ---
DISCHARGE Patient has been discharge by day shift nurse. Patient will be transferred to [facility] via EMS. EMS has been called to transfer patient. Patient resting in bed with family members at the bedside. AA&O X3. No shortness of breath or distress. Patient states no pain at this time. Call light within reach. Encouraged to call for assistance.
--- NOTE | 2018-12-27 22:30 | NUR ---
DISCHARGE EMS has arrived onto floor. Report and packet given to EMS. Patient is being transferred via stretcher. Belongings transferred with patient.
== END 2018-12-27 22:30 | DRG 326 ==
LOC: EDH 23:45 → EDHIP 12-16 06:09 → 3BH 12-17 06:56
PROVIDERS: ADMIT Hospitalist; ATTEND Hospitalist
PROC: 0DQ48ZZ Repair Esophagogastric Junction, Via Natural or Artificial Opening Endoscopic (ICD-10-PCS; principal; 2018-12-21)
PROC: 0W9G30Z Drainage of Peritoneal Cavity with Drainage Device, Percutaneous Approach (ICD-10-PCS; 2018-12-25)
DX: K95.89 Other complications of other bariatric procedure (principal); A41.50 Gram-negative sepsis, unspecified; J18.1 Lobar pneumonia, unspecified organism; K65.1 Peritoneal abscess; C16.9 Malignant neoplasm of stomach, unspecified; Z68.41 Body mass index [BMI] 40.0-44.9, adult; E87.0 Hyperosmolality and hypernatremia; J90 Pleural effusion, not elsewhere classified; F32.9 Major depressive disorder, single episode, unspecified; E66.01 Morbid (severe) obesity due to excess calories; R93.3 Abnormal findings on diagnostic imaging of other parts of digestive tract; I11.9 Hypertensive heart disease without heart failure; B95.4 Other streptococcus as the cause of diseases classified elsewhere; Y83.2 Surgical operation with anastomosis, bypass or graft as the cause of abnormal reaction of the patient, or of later complication, without mention of misadventure at the time of the procedure; Y92.89 Other specified places as the place of occurrence of the external cause; Z98.84 Bariatric surgery status; Z83.3 Family history of diabetes mellitus; Z82.49 Family history of ischemic heart disease and other diseases of the circulatory system; Z80.59 Family history of malignant neoplasm of other urinary tract organ
CPT/HCPCS: 36415; 43235; 49406; 49424; 71045; 71046; 71275; 74018; 74177; 74240; 76080; 77012; 80048; 80053; 80202; 81001; 82550; 83605; 83690; 83735; 83874; 83880; 84484; 85025; 85610; 85730; 87040; 87071; 87088; 87205; 87804; 93005; C1773; C1894; G0378; J1450; J1644; J1650; J2250; J2405; J2543; J2704; J3010; J3370; J3480; J3490; J7030; J7040; J7070; Q9963; Q9967

== ENCOUNTER 2019-01-09 11:40 | Day surgery (SDC) | payer OTHER ==
[~2019-01-09] VITALS: Ht 175.3 cm; Wt 115.7 kg
[2019-01-09 12:00] VITALS: BP 132/59
[2019-01-09] MEDS ORDERED: SODIUM CHLORIDE 0.9% 1000ML 1,000 ML IV ONE (12:04)
--- NOTE | 2019-01-09 14:36 | NUR ---
RECEIVED REPORT FROM ZION AGUIRRE RN. PATIENT IN NO DISTRESS.
[2019-01-09] MEDS ORDERED: LIDOCAINE HCL 1% MDV 50ML VIAL ONE (15:36)
[2019-01-09] MEDS ORDERED: IODIXANOL 320 MG/ML 100 ML VIAL ONE (15:36)
[2019-01-09 16:23] VITALS: BP 128/80
--- NOTE | 2019-01-09 16:23 | NUR ---
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 patient states feeling well. EMS called for transport. [facility] called report given to Neel Spaulding RN.
[2019-01-09 16:45] VITALS: BP 166/78
[2019-01-09 17:00] VITALS: BP 125/76
[2019-01-09 17:30] VITALS: BP 124/74
--- NOTE | 2019-01-09 18:00 | NUR ---
PATIENT RETURNED VIA EMS IN NO DISTRESS, DRESSING TO LEFT LATERAL ABDOMEN SITE IS CLEAN AND DRY. PATIENT STATES FEELING FINE.
== END 2019-01-09 18:10 ==
LOC: CLH 11:40 → DAH 11:40 → CLH 18:10
PROVIDERS: ATTEND Internal Medicine Infectious Disease
DX: T81.49XA Infection following a procedure, other surgical site, initial encounter (principal); I10 Essential (primary) hypertension; E66.9 Obesity, unspecified; Z98.890 Other specified postprocedural states; Z79.899 Other long term (current) drug therapy; I82.409 Acute embolism and thrombosis of unspecified deep veins of unspecified lower extremity
CPT/HCPCS: 49424; 76080; A4606; J1644; J3490; J7030; Q9967